=== PATIENT | female | born 1975 | race Caucasian/White ===

== ENCOUNTER → 2020-02-16 | Outpatient (CLI) | payer OTHER ==
[~2020-02-16] MED LIST: ASPI81CH PO; CLOMID PO; CYCL10 PO; DOCU100; FOLI400 PO; Gas Relief80 MG PO; HYDACE5 PO; IBUP600 PO; IBUP800 PO; MECL25 PO; METF500 PO; MULVITMINE PO; NIAC500 PO; OXYACE5T PO; PHENTERMINE PO; PROM12.5S PO; VITB100 PO
[2020-02-16 12:10] LABS: Calcium, Urine 12.3 mg/dL (< 17.5)
== END | disposition home or self-care (01) ==
LOC: LAB 10:54 → LAB SHORT 10:54
PROVIDERS: Nurse Practitioner Family
DX: E63.9 Nutritional deficiency, unspecified (principal); Z98.84 Bariatric surgery status
CPT/HCPCS: 81050; 82340